=== PATIENT | female | born 1965 | race Caucasian/White ===

== ENCOUNTER 2023-10-29 14:59 | Outpatient (OUT) | payer BC, SELFPAY ==
--- NOTE | 2023-10-29 15:04 | MM_ITS ---
Patient Name: CHELSEA BRAXTON MR#: [id number] : 1965 Exam Date: 10/29/2023 Ordering Doctor: DR Yousif Castro . RADIOLOGY REPORT PROCEDURE: MM TOMOSYNTHESIS SCREENING BI COMPARISON: MG MAMM SCREEN 3D [place] CAD, 10/24/2022. MG MAMM SCREEN 3D [place] CAD, 10/01/2021. MG MAMM SCREEN [place] W CAD, 09/26/2020. MG MAMM [place] SCRN W CAD DIG, 10/20/2013. INDICATIONS: Screening Calculator Name NCI Breast Cancer Risk Assessment Tool 5 Year Breast Cancer Risk 1.20% Lifetime Breast Cancer Risk 6.00% Personal Breast Cancer No Personal Ovarian Cancer No Treatments None Family Cancers None LOCATION: [facility] BREAST COMPOSITION: Heterogeneously dense,which may obscure small masses. FINDINGS: DIAGNOSTIC CATEGORY 1--NEGATIVE. RIGHT BREAST: No significant suspicious finding. No significant change has occurred. LEFT BREAST: No significant suspicious finding. No significant change has occurred. RECOMMENDATIONS: ROUTINE MAMMOGRAM AND CLINICAL EVALUATION IN 12 MONTHS. PLEASE NOTE: A NORMAL MAMMOGRAM DOES NOT EXCLUDE THE POSSIBILITY OF BREAST CANCER. A CLINICALLY SUSPICIOUS PALPABLE LUMP SHOULD BE BIOPSIED. Dictated by: Bart Valencia M.D. on 10/30/2023 at 13:56 Approved by: Bart Valencia M.D. on 10/30/2023 at 14:11
== END 2023-10-29 15:00 | disposition home or self-care (01) ==
LOC: MAMMO 14:59
PROVIDERS: PCP Family Medicine; Visit Provider Family Medicine
DX: Z12.31 Encounter for screening mammogram for malignant neoplasm of breast (principal)
CPT/HCPCS: 77063; 77067

== ENCOUNTER 2023-11-05 06:33 | Outpatient (OUT) | payer BC, SELFPAY ==
[2023-11-05 07:01] LABS: Eosinophils Absolute Auto 0.1 10^3/uL (0.0-0.7); Eosinophils Percent Auto 3.1 % (0.9-7.0); Hematocrit 38.4 % (36.0-48.0); Hemoglobin 12.8 g/dL (12.0-16.0); Immature Granulocytes Abs Auto 0.01 10^3/uL (0.00-0.03); Immature Granulocytes Pct Auto 0.3 % (0.0-0.5); Lymphocytes Absolute Auto 1.3 10^3/uL (1.2-3.8); Lymphocytes Percent Auto 33.1 % (20.5-60.0); Mean Corpuscular HGB Conc 33.3 g/dL (29.9-35.2); Mean Corpuscular Hemoglobin 29.6 pg (26.7-34.0); Mean Corpuscular Volume 88.9 fL (81.0-99.0); Mean Platelet Volume 10.1 fL (9.5-13.5); Monocytes Absolute Auto 0.4 10^3/uL (0.3-0.8); Monocytes Percent Auto 10.9 % (1.7-12.0); Neutrophils Percent Auto 51.6 % (43.0-75.0); Platelet Count 254 10^3/uL (150-450); Red Blood Count 4.32 10^6/uL (4.20-5.40); Red Cell Distribution Width 12.3 % (11.0-15.0); White Blood Count 3.9 10^3/uL (4.0-11.0)
[2023-11-05 07:17] LABS: Estimated Average Glucose 100 mg/dL; Glycohemoglobin A1C 5.1 % (4.5-6.2)
[2023-11-05 07:26] LABS: Alanine Aminotransferase 37 U/L (14-59); Albumin Level 3.8 g/dL (3.4-5.0); Alkaline Phosphatase 91 U/L (46-116); Anion Gap 14.7; Aspartate Amino Transferase 20 U/L (15-37); BUN Creatinine Ratio 23.9; Bilirubin Total 0.4 mg/dL (0.2-1.0); Carbon Dioxide 27.2 mmol/L (21.0-32.0); Chloride 102 mmol/L (98-107); Chol HDL Ratio 2.3; Cholesterol 170 mg/dL (<=200); Estimated GFR (African America >60 (>=60); Estimated GFR (Non-African Ame >60 (>=60); Globulin 3.7 g/dL; Glucose 104 mg/dL (74-106); HDL Cholesterol 74 mg/dL (40-60); Potassium 3.9 mmol/L (3.5-5.1); Sodium 140 mmol/L (136-145); Thyroid Stimulating Hormone 2.507 uIU/mL (0.358-3.740); Total Protein 7.5 g/dL (6.4-8.2); Triglycerides 41 mg/dL (<=150); VLDL CHOLESTEROL 8.2 mg/dL
== END 2023-11-05 06:34 | disposition home or self-care (01) ==
LOC: LAB 06:34
PROVIDERS: PCP Family Medicine; Visit Provider Family Medicine
DX: Z00.00 Encounter for general adult medical examination without abnormal findings (principal)
CPT/HCPCS: 36415; 80053; 80061; 83036; 84443; 85025

== ENCOUNTER 2023-11-11 13:48 | Outpatient (OUT) | payer BC, SELFPAY ==
--- NOTE | 2023-11-11 14:00 | CA_ITS ---
Patient Name: CHELSEA BRAXTON MR#: [id number] : 1965 Exam Date: 11/11/2023 Ordering Doctor: DR AQUILINO TOMAS . ECHOCARDIOGRAM REPORT PROCEDURE: CA ECHO DOPPLER COMPLETE INDICATIONS: Murmur COMPARISON: None. DESCRIPTION: COMPLETE ECHOCARDIOGRAM Real-time transthoracic echocardiography with 2D, M-mode, spectral and color flow Doppler performed. QUALITY: Technical quality was good. 64 , 172#, BSA 1.83 m2, BP 122/70 LEFT VENTRICLE: Normal chamber size. Proximal septal hypertrophy (sigmoid septum). Normal systolic function. LV EF: Normal left ventricular ejection fraction, (>55%). DIASTOLIC: Normal diastolic function. ATRIAL SEPTUM: Visually appears intact. LEFT ATRIUM: Normal chamber size. RIGHT ATRIUM: Normal chamber size. RIGHT VENTRICLE: Normal chamber size. Normal right ventricular systolic function. TRICUSPID VALVE: Normal mobility and thickness. No stenosis with mild regurgitation. No evidence of pulmonary hypertension. RVSP 31 mmHg MITRAL VALVE: Normal mobility and thickness. No evidence of mitral valve stenosis. There is no mitral annular calcification. Trivial mitral regurgitation. AORTIC VALVE: Normal trileaflet appearance. No visible sclerosis. Normal leaflet mobility. No evidence of aortic valve stenosis. Mild aortic regurgitation. AORTIC ROOT: Normal diameter and appearance. Ascending aorta is normal in size. PULMONIC VALVE: Normal thickness and mobility. No stenosis. Trivial regurgitation. PERICARDIUM: No evidence of pericardial effusion. IVC: Collapses with inspirations. PLEURA: CONCLUSION: 1. Normal ventricular function. LVEF is 55 to 60%. 2. Mild tricuspid and aortic regurgitation. 3. Normal diastolic function. 4. Normal right-sided pressures. Adult Echocardiography Procedure Report Left Ventricle LVEDD (3.7 - 5.6 cm): 3.64 cm LVESD (2.2 - 4.0 cm): 2.55 cm LVIVS thickness (0.6 - 1.2 cm): 1.24 cm LVPW thickness (0.5 - 1.0 cm): 0.92 cm e': 0.10 m/s E - e': 9.19 LVOT Max Gradient: 8.87 mm[Hg] LVOT Area (cm2): 1.49 m/s Peak Velocity (LVOT): 1.49 m/s Mean Velocity (LVOT): 0.99 m/s LVOT Diameter 2.10 cm Left Atrium LA Volume Index (2D A2C): 28.01 ml/m2 Left Atrium Systolic Dimension: 3.62 cm Mitral Valve MV E to A Ratio: 1.02 Mitral Valve A-Wave Peak Velocity: 0.88 m/s Mitral Valve E-Wave Peak Velocity: 0.89 m/s Right Ventricle Aorta AO Root Diam: 3.34 cm Ascending Ao Diam: 3.26 cm Aortic Valve AoV Area (Peak Saad): 2.66 cm2, 2.66 cm2 AoV Area (VTI): 2.69 cm2, 2.69 cm2 Peak Velocity(Antegrade Flow): 1.93 m/s Peak Gradient(Antegrade Flow): 14.91 mm[Hg] Mean Velocity(Antegrade Flow): 1.29 m/s Mean Gradient(Antegrade Flow): 7.62 mm[Hg] Velocity Time Integral: 42.62 cm Tricuspid Valve Peak Velocity (Regurgitant Flow): 2.41 m/s, 2.64 m/s Pulmonic Valve Peak Velocity: 1.08 m/s Peak Gradient: 4.64 mm[Hg] Right Atrium Right Atrium Systolic Pressure: 35.49 ml, 35.49 ml Dictated by: Angelo Meredith M.D. on 11/12/2023 at 16:30 Approved by: Angelo Meredith M.D. on 11/12/2023 at 16:33
== END 2023-11-11 13:49 | disposition home or self-care (01) ==
LOC: CARD 13:48
PROVIDERS: PCP Family Medicine; Visit Provider Family Medicine
DX: R01.1 Cardiac murmur, unspecified (principal)
CPT/HCPCS: 93306

== ENCOUNTER 2023-11-24 20:29 | Outpatient (REF) | payer BC, SELFPAY ==
[2023-11-28 12:09] LABS: Age Gdln ACOG Testing Note (.); HPV Aptima Negative (Negative); IGP, Aptima HPV, rfx 16/18,45 Note (.)
== END 2023-11-24 20:30 | disposition home or self-care (01) ==
LOC: LAB 20:29
PROVIDERS: PCP Family Medicine; Visit Provider Physician Assistant
DX: Z01.419 Encounter for gynecological examination (general) (routine) without abnormal findings (principal)
CPT/HCPCS: 87624; G0145

== ENCOUNTER 2024-11-09 06:33 | Outpatient (OUT) | payer BC, SELFPAY ==
[2024-11-09 06:50] LABS: Basophils Absolute Auto 0.1 10^3/uL (0.0-0.1); Basophils Percent Auto 1.2 % (0.2-2.0); Eosinophils Absolute Auto 0.1 10^3/uL (0.0-0.7); Eosinophils Percent Auto 3.2 % (0.9-7.0); Hematocrit 37.6 % (36.0-48.0); Hemoglobin 12.8 g/dL (12.0-16.0); Immature Granulocytes Abs Auto 0.01 10^3/uL (0.00-0.03); Immature Granulocytes Pct Auto 0.2 % (0.0-0.5); Lymphocytes Absolute Auto 1.3 10^3/uL (1.2-3.8); Lymphocytes Percent Auto 32.4 % (20.5-60.0); Mean Corpuscular Hemoglobin 30.3 pg (26.7-34.0); Mean Corpuscular Volume 89.1 fL (81.0-99.0); Mean Platelet Volume 10.1 fL (9.5-13.5); Monocytes Absolute Auto 0.5 10^3/uL (0.3-0.8); Monocytes Percent Auto 11.5 % (1.7-12.0); Neutrophils Absolute Auto 2.1 10^3/uL (1.4-6.5); Neutrophils Percent Auto 51.5 % (43.0-75.0); Platelet Count 225 10^3/uL (150-450); Red Blood Count 4.22 10^6/uL (4.20-5.40); Red Cell Distribution Width 12.6 % (11.0-15.0)
[2024-11-09 07:05] LABS: Estimated Average Glucose 108 mg/dL; Glycohemoglobin A1C 5.4 % (4.5-6.2)
[2024-11-09 07:16] LABS: Alanine Aminotransferase 31 U/L (14-59); Albumin Globulin Ratio 1.2; Albumin Level 4.1 g/dL (3.4-5.0); Alkaline Phosphatase 100 U/L (46-116); Anion Gap 13.1; Aspartate Amino Transferase 21 U/L (15-37); BUN Creatinine Ratio 33.3; Bilirubin Total 0.4 mg/dL (0.2-1.0); Calcium 9.4 mg/dL (8.5-10.1); Chloride 103 mmol/L (98-107); Chol HDL Ratio 2.1; Cholesterol 150 mg/dL (<=200); Estimated GFR (African America >60 (>=60 mL/min/1.73m^2); Estimated GFR (Non-African Ame >60 (>=60 mL/min/1.73m^2); Globulin 3.5 g/dL; Glucose 105 mg/dL (74-106); HDL Cholesterol 72 mg/dL (40-60); Potassium 4.1 mmol/L (3.5-5.1); Sodium 141 mmol/L (136-145); Thyroid Stimulating Hormone 3.082 uIU/mL (0.358-3.740); Total Protein 7.6 g/dL (6.4-8.2); Triglycerides 39 mg/dL (<=150); VLDL CHOLESTEROL 7.8 mg/dL
--- NOTE | 2024-11-09 08:30 | MM_ITS ---
Patient Name: CHELSEA BRAXTON MR#: [id number] : 1965 Exam Date: 11/09/2024 Ordering Doctor: DR AQUILINO TOMAS . RADIOLOGY REPORT PROCEDURE: MM TOMOSYNTHESIS SCREENING BI COMPARISON: MM TOMOSYNTHESIS SCREENING BI, 10/29/2023. MG MAMM SCREEN 3D [place] CAD, 10/24/2022. MG MAMM SCREEN 3D [place] CAD, 10/01/2021. MG MAMM [place] SCRN W CAD DIG, 10/20/2013. INDICATIONS: Screening Calculator Name NCI Breast Cancer Risk Assessment Tool 5 Year Breast Cancer Risk 1.20% Lifetime Breast Cancer Risk 5.80% Personal Breast Cancer No Personal Ovarian Cancer No Treatments None Family Cancers None LOCATION: [facility] BREAST COMPOSITION: The breasts are heterogeneously dense,which may obscure small masses. FINDINGS: DIAGNOSTIC CATEGORY 1--NEGATIVE. LEFT BREAST: No significant suspicious finding. RIGHT BREAST: No significant suspicious finding. RECOMMENDATIONS: ROUTINE MAMMOGRAM AND CLINICAL EVALUATION IN 12 MONTHS. PLEASE NOTE: A NORMAL MAMMOGRAM DOES NOT EXCLUDE THE POSSIBILITY OF BREAST CANCER. A CLINICALLY SUSPICIOUS PALPABLE LUMP SHOULD BE BIOPSIED. Dictated by: Madhu Arnold DO on 11/09/2024 at 15:57 Approved by: Madhu Arnold DO on 11/09/2024 at 15:59
== END 2024-11-09 06:34 | disposition home or self-care (01) ==
LOC: MAMMO 06:33
PROVIDERS: PCP Family Medicine; Visit Provider Family Medicine
DX: Z00.00 Encounter for general adult medical examination without abnormal findings (principal); Z12.31 Encounter for screening mammogram for malignant neoplasm of breast
CPT/HCPCS: 36415; 77063; 77067; 80053; 80061; 83036; 84443; 85025

== ENCOUNTER 2024-12-12 20:14 | Outpatient (REF) | payer BC, SELFPAY ==
[2024-12-16 09:10] LABS: Age Gdln ACOG Testing Note (.); HPV Aptima Negative (Negative); IGP, Aptima HPV, rfx 16/18,45 Note (.)
== END 2024-12-12 20:15 | disposition home or self-care (01) ==
LOC: LAB 20:14
PROVIDERS: PCP Family Medicine; Visit Provider Physician Assistant
DX: Z01.419 Encounter for gynecological examination (general) (routine) without abnormal findings (principal)
CPT/HCPCS: 87624; 88175

== ENCOUNTER 2024-12-22 14:29 | Outpatient (OUT) | payer BC, SELFPAY | END 2024-12-22 14:30 | disposition home or self-care (01) | LOC: RAD 14:29 | PROVIDERS: PCP Family Medicine; Visit Provider Physician Assistant | DX: Z78.0 Asymptomatic menopausal state (principal) | CPT/HCPCS: 77080 ==